=== PATIENT | female | born 1950 | race Caucasian/White ===

== ENCOUNTER → 2017-09-30 | Outpatient (CLI) | payer MEDICARE, OTHER ==
--- NOTE | 2017-09-30 12:17 | CTL ---
EXAMINATION TYPE: CT Low Dose Lung DATE OF EXAM ORDERED: 09/30/2017 HISTORY: Tobacco abuse. Lung cancer screening CT DLP: 55.[address] CTDI: 2.1 mGy Automated exposure control for dose reduction was used. SCREENING VISIT: Second COMPARISON: 07/27/2016 TECHNIQUE: Low dose computed tomography scan was performed through the chest at 1 mm thick sections a nd reconstructed images in the coronal plane at [address] DIAGNOSTIC QUALITY: Satisfactory FINDINGS: LUNG NODULES: None. LUNGS: COPD: Severity: Mild centrilobular Fibrosis: Severity: None Lymph nodes: None Other findings: Minimal dependent bibasilar subsegmental atelectasis. RIGHT PLEURAL SPACE: Effusion: None Calcification: None Thickening: None Pneumothorax: None LEFT PLEURAL SPACE: Effusion: None Calcification: None Thickening: None Pneumothorax: None HEART: Heart Size: Nonenlarged Coronary calcification: Minimal Pericardial effusion: None OTHER FINDINGS: Upper abdomen: Diffuse hypoattenuation of the hepatic parenchyma suggests underlying hepatic steatosi s. Bony thorax: Minimal multilevel degenerative changes of the thoracic spine. No suspicious osseous les ions. Supraclavicular region: Unremarkable. IMPRESSION: No pulmonary nodules or masses. Mild centrilobular emphysematous changes. FOLLOW UP CT CHEST RECOMMENDATION: Annual screening low dose CT is recommended in one year. CT LUNG RAD: Lung-Rad 1 Negative
--- NOTE | 2017-10-03 11:14 | MM ---
Reason for exam: screening (asymptomatic). Last mammogram was performed 1 year and 4 months ago. History: Patient is postmenopausal and is nulliparous. Family history of breast cancer in maternal grandmother at age 70, premenopausal breast cancer in sister at age 37, and premenopausal breast cancer in sister at age 52. Benign stereotactic core biopsy of the right breast, July 06, 2001. Core biopsy of the right breast. Took estrogen for 20 years beginning at age 31. Physical Findings: A clinical breast exam by your physician is recommended on an annual basis and results should be correlated with mammographic findings. MG 3D Screening Mammo W/Cad Bilateral CC and MLO view(s) were taken. Prior study comparison: May 28, 2016, bilateral MG 3d screening mammo w/cad. October 18, 2014, bilateral MG screening mammo w CAD. The breast tissue is heterogeneously dense. This may lower the sensitivity of mammography. Stable benign calcifications in the right breast. There is no discrete abnormality. No significant changes when compared with prior studies. ASSESSMENT: Benign, BI-RAD 2 RECOMMENDATION: Routine screening mammogram of both breasts in 1 year.
== END | disposition home or self-care (01) ==
LOC: RADMAMWWP 10:40
PROVIDERS: ATTEND Family Medicine
DX: Z12.31 Encounter for screening mammogram for malignant neoplasm of breast (principal); Z12.2 Encounter for screening for malignant neoplasm of respiratory organs; J43.2 Centrilobular emphysema; Z87.891 Personal history of nicotine dependence
CPT/HCPCS: 77063; G0202; G0297

== ENCOUNTER → 2018-01-30 | Outpatient (CLI) | payer MEDICARE, OTHER ==
[2018-01-30 14:45] LABS: Basophils # (A) 0.1 k/uL (0-0.2); Basophils % (A) 1 %; Eosinophils # (A) 0.4 k/uL (0-0.7); Eosinophils % (A) 5 %; HCT 48.7 % (34.0-46.0); HGB 15.9 gm/dL (11.4-16.0); Lymphocytes # (A) 3.2 k/uL (1.0-4.8); Lymphocytes % (A) 35 %; MCHC 32.7 g/dL (31.0-37.0); MCV 91.9 fL (80.0-100.0); Mean Platelet Volume 7.2; Monocytes # (A) 0.6 k/uL (0-1.0); Monocytes % (A) 6 %; Neutrophils # (A) 4.9 k/uL (1.3-7.7); Neutrophils % (A) 52 %; Platelet Count 312 k/uL (150-450); RBC 5.29 m/uL (3.80-5.40); RDW 12.9 % (11.5-15.5); WBC 9.3 k/uL (3.8-10.6)
[2018-01-30 14:53] LABS: Albumin 4.5 g/dL (3.5-5.0); Calcium 9.9 mg/dL (8.4-10.2); Potassium 4.4 mmol/L (3.5-5.1); Total Bilirubin 0.5 mg/dL (0.2-1.3); Total Protein 7.4 g/dL (6.3-8.2)
--- NOTE | 2018-01-30 16:30 | CT ---
EXAMINATION TYPE: CT abdomen pelvis w con DATE OF EXAM: 01/30/2018 COMPARISON: CT low-dose lung cancer screening 09/30/2017 HISTORY: 67 year-old female right lower quadrant and right lower flank pain for 3-4 days TECHNIQUE: Contiguous axial scanning of the abdomen and pelvis following administration of 100 ml Omn ipaque 300 IV contrast. Delayed images through the kidneys and coronal/sagittal reconstructions perf ormed. CT DLP: 532.3 mGycm Automated exposure control for dose reduction was used. FINDINGS: Heart is normal size without pericardial effusion. Lung bases clear without pleural effusion. Tiny hiatal hernia. Liver measures upper limits of normal in size at 16.4 cm craniocaudal. Suggestion of some fatty spari ng along the gallbladder fossa. Portal venous system is patent. No biliary ductal dilatation. Gallbladder, adrenal glands, kidneys, spleen with tiny anterior splenule, pancreas appear within norm al limits. Tiny fatty umbilical hernia. No dilated small bowel, free fluid, or free air. No mesenteric or retroperitoneal lymphadenopathy. Or al contrast progressed to the splenic flexure. There is moderate stool. No pericolonic inflammatory c hange. While the appendix is not discretely visualized, no dilated tubular fluid-filled structure is identif ied in the right lower quadrant to suggest acute appendicitis. Bladder distended. Uterus surgically absent. Neither ovary is seen and also be surgically absent. No abnormal fluid collection in the pelvis or pelvic lymphadenopathy seen. Bones: no osseous destructive process. IMPRESSION: 1. Mild hepatic stenosis. Correlate with LFTs, lipid profile, and patient risk factors. 2. Scattered moderate stool burden. No acute inflammatory process identified in the abdomen or pelvis to explain the patient's symptoms. 3. Status post hysterectomy.
== END | disposition home or self-care (01) ==
LOC: RADCTMAIN 14:14
PROVIDERS: ATTEND Nurse Practitioner Family
DX: K76.89 Other specified diseases of liver (principal); R10.0 Acute abdomen; Z90.710 Acquired absence of both cervix and uterus
CPT/HCPCS: 80053; 85025; 74177; 36415; Q9967

== ENCOUNTER → 2018-02-08 | Outpatient (CLI) | payer MEDICARE, OTHER ==
--- NOTE | 2018-02-08 14:39 | US ---
EXAMINATION TYPE: US kidneys/renal and bladder DATE OF EXAM: 02/08/2018 COMPARISON: CT 01/30/2018 CLINICAL HISTORY: R10.11 RUQ PAIN. EXAM MEASUREMENTS: Right Kidney: 10.1 x 3.9 x 4.3 cm Left Kidney: 10.5 x 5.6 x 4.7 cm Right Kidney: No hydronephrosis or masses seen Left Kidney: No hydronephrosis or masses seen Bladder: wnl as visualized, not fully distended Bilateral Jets seen: No, however the bladder was not fully distended. There is no evidence for hydronephrosis at this point in time. No nephrolithiasis is seen. No fern s are identified. The urinary bladder is anechoic. IMPRESSION: No hydronephrosis or nephrolithiasis. Incomplete distention of the urinary bladder although no gross abnormality is seen
== END | disposition home or self-care (01) ==
LOC: RADUSWWP 14:07
PROVIDERS: ATTEND Family Medicine
DX: N32.89 Other specified disorders of bladder (principal)
CPT/HCPCS: 76770

== ENCOUNTER → 2018-11-13 | Outpatient (CLI) | payer MEDICARE, OTHER ==
--- NOTE | 2018-11-16 11:07 | MM ---
Reason for exam: screening (asymptomatic). Last mammogram was performed 1 year and 1 month ago. History: Patient is postmenopausal and is nulliparous. Family history of breast cancer in maternal grandmother at age 70, premenopausal breast cancer in sister at age 37, and premenopausal breast cancer in sister at age 52. Benign stereotactic core biopsy of the right breast, July 06, 2001. Core biopsy of the right breast. Took estrogen for 20 years beginning at age 31. Physical Findings: A clinical breast exam by your physician is recommended on an annual basis and results should be correlated with mammographic findings. MG 3D Screening Mammo W/Cad Bilateral CC and MLO view(s) were taken. Prior study comparison: September 30, 2017, bilateral MG 3d screening mammo w/cad. May 28, 2016, bilateral MG 3d screening mammo w/cad. The breast tissue is heterogeneously dense. This may lower the sensitivity of mammography. There are benign appearing round calcifications bilaterally. Previous mammotome biopsy in the right breast. There is no discrete abnormality. ASSESSMENT: Benign, BI-RAD 2 RECOMMENDATION: Routine screening mammogram of both breasts in 1 year.
== END | disposition home or self-care (01) ==
LOC: RADMAMWWP 10:08
PROVIDERS: ATTEND Family Medicine
DX: Z12.31 Encounter for screening mammogram for malignant neoplasm of breast (principal)
CPT/HCPCS: 77063; 77067

== ENCOUNTER → 2019-12-12 | Outpatient (CLI) | payer MEDICARE, OTHER ==
--- NOTE | 2019-12-12 10:12 | BD ---
EXAMINATION TYPE: Axial Bone Density DATE OF EXAM: 12/12/2019 COMPARISON: NONE CLINICAL HISTORY: Height: 5 FT 1 1/2 IN Weight: 133 FRAX RISK QUESTIONS: Alcohol (3 or more units per day): NO Family History (Parent hip fracture): NO Glucocorticoids (More than 3mos): NO (Ex: prednisone, prednisolone, methylprednisolone, dexamethasone, and hydrocortisone). History of Fracture in Adulthood: YES Secondary Osteoporosis: 1. Type 1 Diabetes: NO 2. Hyperthyroidism: NO 3. Menopause before 45: NO 4. Malnutrition: NO 5. Chronic liver disease: NO Rheumatoid Arthritis: NO Current Tobacco Use: NO RISK FACTORS HISTORY OF: Active: YES Postmenopausal woman: PART HYST AGE 32 Take estrogen and/or progesterone medications: PRIOR How long: TOOK APPROX 20 YEARS MEDICATIONS: Additional Medications: ELAVIL, XANAX, VIT D , FOLIC ACID, Additional History: EXAM MEASUREMENTS: Bone mineral densitometry was performed using the OraMetrix System. Bone mineral density as measured about the Lumbar spine is: ----- L1-L4(G/cm2): 1.005 T Score Values are as follows: ----- L2: -2.8 ----- L3: -0.9 ----- L4: -0.1 ----- L1-L4: -1.5 PREV LONG AGO Bone mineral density about the R hip (g/cm2): 0.833 Bone mineral density about the L hip (g/cm2): 0.818 T Score values are as follows: -----R Neck: -1.5 -----L Neck: -1.6 -----R Total: -0.7 -----L Total: -0.8 PREV LONG AGO IMPRESSION: Osteopenia (T Score between -2.5 and -1). There is slightly increased risk of fracture and the patient may be considered for treatment. Re-Screen 2-5 years. NOTE: T-SCORE=SD OF THE YOUNG ADULT MEAN.
--- NOTE | 2019-12-13 13:29 | MM ---
Reason for exam: screening (asymptomatic). Last mammogram was performed 1 year and 1 month ago. History: Patient is postmenopausal and is nulliparous. Family history of breast cancer in maternal grandmother at age 70, premenopausal breast cancer in sister at age 37, and premenopausal breast cancer in sister at age 52. Benign stereotactic core biopsy of the right breast, July 06, 2001. Core biopsy of the right breast. Took estrogen for 20 years beginning at age 31. Physical Findings: A clinical breast exam by your physician is recommended on an annual basis and results should be correlated with mammographic findings. MG 3D Screening Mammo W/Cad Bilateral CC and MLO view(s) were taken. Prior study comparison: November 13, 2018, bilateral MG 3d screening mammo w/cad. September 30, 2017, bilateral MG 3d screening mammo w/cad. The breast tissue is heterogeneously dense. This may lower the sensitivity of mammography. No significant changes when compared with prior studies. ASSESSMENT: Benign, BI-RAD 2 RECOMMENDATION: Routine screening mammogram of both breasts in 1 year.
== END | disposition home or self-care (01) ==
LOC: RADMAMWWP 06:50
PROVIDERS: ATTEND Family Medicine
DX: Z12.31 Encounter for screening mammogram for malignant neoplasm of breast (principal); Z13.820 Encounter for screening for osteoporosis; M85.80 Other specified disorders of bone density and structure, unspecified site; Z78.0 Asymptomatic menopausal state
CPT/HCPCS: 77063; 77067; 77080

== ENCOUNTER → 2021-01-14 | Outpatient (CLI) | payer MEDICARE, OTHER ==
--- NOTE | 2021-01-16 13:33 | MM ---
Reason for exam: screening (asymptomatic). Last mammogram was performed 1 year and 1 month ago. History: Patient is postmenopausal and is nulliparous. Family history of breast cancer in maternal grandmother at age 70, premenopausal breast cancer in sister at age 37, and premenopausal breast cancer in sister at age 52. Benign stereotactic core biopsy of the right breast, July 06, 2001. Core biopsy of the right breast. Took estrogen for 20 years beginning at age 31. Physical Findings: A clinical breast exam by your physician is recommended on an annual basis and results should be correlated with mammographic findings. MG 3D Screening Mammo W/Cad Bilateral CC and MLO view(s) were taken. Prior study comparison: December 12, 2019, bilateral MG 3d screening mammo w/cad. November 13, 2018, bilateral MG 3d screening mammo w/cad. The breast tissue is extremely dense which could obscure a lesion on mammography. Stable benign calcifications. There is no discrete abnormality. No significant changes when compared with prior studies. ASSESSMENT: Benign, BI-RAD 2 RECOMMENDATION: Routine screening mammogram of both breasts in 1 year.
== END | disposition home or self-care (01) ==
LOC: RADMAMWWP 08:06
PROVIDERS: ATTEND Family Medicine
DX: Z12.31 Encounter for screening mammogram for malignant neoplasm of breast (principal)
CPT/HCPCS: 77063; 77067

== ENCOUNTER → 2021-11-11 | Outpatient (CLI) | payer MEDICARE, OTHER ==
[~2021-11-11] MED LIST: CASIRIVIMAB (REGN10933) (EUA) 600 MG, IMDEVIMAB (REGN10987) (EUA) 600 MG in SODIUM CHLO... IVPB NR; SODIUM CHLORIDE 0.9% 50 ML IVPB NR; SODIUM CHLORIDE 0.9% 500 ML 500 ML in EMPTY BAG 1 BAG IV PRN
[2021-11-11 13:22] VITALS: RESP 16
[2021-11-11 13:43] VITALS: BP 133/74; PULSE 86; TEMP 98.2
== END ==
LOC: PROCWHC3 13:06
PROVIDERS: ATTEND Family Medicine
DX: U07.1 COVID-19 (principal); Z88.1 Allergy status to other antibiotic agents; Z88.2 Allergy status to sulfonamides; Z88.6 Allergy status to analgesic agent
CPT/HCPCS: Q0244; M0243

== ENCOUNTER → 2022-04-01 | Outpatient (CLI) | payer MEDICARE, OTHER ==
--- NOTE | 2022-04-02 12:50 | MM ---
Reason for exam: screening (asymptomatic). Last mammogram was performed 1 year and 3 months ago. History: Patient is postmenopausal and is nulliparous. Family history of breast cancer in maternal grandmother at age 70, premenopausal breast cancer in sister at age 37, and premenopausal breast cancer in sister at age 52. Benign stereotactic core biopsy of the right breast, July 06, 2001. Core biopsy of the right breast. Took estrogen for 20 years beginning at age 31. Physical Findings: A clinical breast exam by your physician is recommended on an annual basis and results should be correlated with mammographic findings. MG 3D Screening Mammo W/Cad Bilateral CC and MLO view(s) were taken. Prior study comparison: January 14, 2021, bilateral MG 3d screening mammo w/cad. December 12, 2019, bilateral MG 3d screening mammo w/cad. The breast tissue is extremely dense which could obscure a lesion on mammography. Stable benign calcifications. Previous mammotome biopsy in the right breast. No significant changes when compared with prior studies. ASSESSMENT: Benign, BI-RAD 2 RECOMMENDATION: Routine screening mammogram of both breasts in 1 year.
== END | disposition home or self-care (01) ==
LOC: RADMAMWWP 13:09
PROVIDERS: ATTEND Family Medicine
DX: Z12.31 Encounter for screening mammogram for malignant neoplasm of breast (principal); Z78.0 Asymptomatic menopausal state; Z80.3 Family history of malignant neoplasm of breast
CPT/HCPCS: 77063; 77067

== ENCOUNTER → 2022-04-23 | Outpatient (CLI) | payer MEDICARE, OTHER ==
--- NOTE | 2022-04-23 09:07 | CTL ---
EXAMINATION TYPE: CT Low Dose Lung DATE OF EXAM ORDERED: 04/23/2022 HISTORY: Long-term tobacco use. Lung cancer screening CT DLP: 73.[address] CTDI: 2.3 mGy Automated exposure control for dose reduction was used. SCREENING VISIT: Second after baseline COMPARISON: Prior studies 2016 and 2017 TECHNIQUE: Low dose computed tomography scan was performed through the chest at 1 mm thick sections a nd reconstructed images in multiple planes at 1 mm and [address] DIAGNOSTIC QUALITY: Satisfactory FINDINGS: LUNG NODULES: None. LUNGS: COPD: Severity: Moderate Fibrosis: Severity: Minimal Lymph nodes: None Other findings: There is a four-vessel aortic arch which is normal variant RIGHT PLEURAL SPACE: Effusion: None Calcification: None Thickening: None Pneumothorax: None LEFT PLEURAL SPACE: Effusion: None Calcification: None Thickening: None Pneumothorax: None HEART: Heart Size: Normal Coronary Calcification: Mild Pericardial Effusion: None OTHER FINDINGS: Upper abdomen: Visualized liver is diffusely hypodense consistent with diffuse fatty infiltration Bony thorax: None Supraclavicular region: None Other: None IMPRESSION: Moderate emphysematous change without suspicious new greater than [address] LUNG RAD AND CT CHEST RECOMMENDATION: Lung-Rad 1 Negative: Continue annual screening with LDCT in 12 months. S Modifier (other clinically significant findings): None
== END | disposition home or self-care (01) ==
LOC: RADCTMAIN 07:56
PROVIDERS: ATTEND Family Medicine
DX: Z12.2 Encounter for screening for malignant neoplasm of respiratory organs (principal); J43.9 Emphysema, unspecified; Z87.891 Personal history of nicotine dependence
CPT/HCPCS: 71271

== ENCOUNTER → 2023-04-06 | Outpatient (CLI) | payer MEDICARE, OTHER ==
--- NOTE | 2023-04-06 10:20 | MM ---
Reason for Exam: Screening (asymptomatic). Last screening mammogram was performed 12 month(s) ago. Patient History: Menarche at age 15. Patient has no children. Left ovary removed at age 32. Right ovary removed at age 32. Hysterectomy at age 32. Postmenopausal. Estrogen for 20 years from age 31 until age 52. Core Biopsy on the Right side. 07/06/2001, Benign Stereotactic Core Biopsy on the right side. Maternal grandmother had breast cancer, age 70. Sister had breast cancer, age 37. Sister had breast cancer, age 52. Risk Values: Debby 5 year model risk: 8.1%. NCI Lifetime model risk: 20.9%. Prior Study Comparison: 12/12/2019 Bilateral Screening Mammogram, [facility]. 01/14/2021 Bilateral Screening Mammogram, [facility]. 04/01/2022 Bilateral Screening Mammogram, [facility]. Tissue Density: The breast tissue is heterogeneously dense. This may lower the sensitivity of mammography. Findings: Analyzed By CAD. Benign-appearing calcifications. There is no suspicious group of microcalcifications or new suspicious mass in either breast. Overall Assessment: Benign, BI-RAD 2 Management: Screening Mammogram of both breasts in [address] [facility] will attempt to contact patient to return for supplemental views and ultrasound if indicated. Patient should continue monthly self-breast exams. A clinical breast exam by your physician is recommended on an annual basis. This exam should not preclude additional follow-up of suspicious palpable abnormalities. Note on Debby scores and lifetime risk: 1. A Debby score greater than 3% is considered moderate risk. If this is the case, consider specialist referral to assess eligibility for a risk reducing agent. 2. If overall lifetime risk for the development of breast cancer is 20% or higher, the patient may qualify for future screening with alternating mammogram and breast MRI. Electronically signed and approved by: David Agarwal DO
== END | disposition home or self-care (01) ==
LOC: RADMAMWWP 08:51
PROVIDERS: ATTEND Family Medicine
DX: Z12.31 Encounter for screening mammogram for malignant neoplasm of breast (principal); Z78.0 Asymptomatic menopausal state; Z80.3 Family history of malignant neoplasm of breast
CPT/HCPCS: 77063; 77067

== ENCOUNTER → 2023-07-04 | Outpatient (CLI) | payer MEDICARE, OTHER ==
--- NOTE | 2023-07-04 10:37 | CTL ---
EXAMINATION TYPE: CT Low Dose Lung DATE OF EXAM ORDERED: 07/04/2023 HISTORY: . Lung cancer screening CT DLP: 67.[address] CTDI: 2.1 mGy Automated exposure control for dose reduction was used. COMPARISON: 04/23/2022. TECHNIQUE: Low dose computed tomography scan was performed through the chest at 1 mm thick sections a nd reconstructed images in multiple planes at 1 mm and [address] DIAGNOSTIC QUALITY: Satisfactory FINDINGS: CHEST: Lungs: There is moderate upper lobe predominant centrilobular emphysema. There are no significant pu lmonary nodules. Pleura: Normal. Mediastinum And Meena: Normal. Cardiovascular: The thoracic aorta is normal in caliber without evidence of aneurysmal dilation. Ther e are mild patchy coronary artery calcifications. Chest Wall: Normal. Upper Abdomen: There is diffuse decreased attenuation of the liver which is compatible fatty liver in filtration. The visualized upper abdomen otherwise appears unremarkable. MUSCULOSKELETAL: Normal. IMPRESSION: 1. Negative lung cancer screening examination for significant pulmonary nodules. Lung RADS 1. Contin ue screening in 1 year. 2. Moderate emphysema. 3. Mild coronary calcification. 4. Diffuse hepatic steatosis.
== END | disposition home or self-care (01) ==
LOC: RADCTMAIN 07:15
PROVIDERS: ATTEND Family Medicine
DX: Z12.2 Encounter for screening for malignant neoplasm of respiratory organs (principal); J43.2 Centrilobular emphysema; I25.10 Atherosclerotic heart disease of native coronary artery without angina pectoris; K76.0 Fatty (change of) liver, not elsewhere classified
CPT/HCPCS: 71271

== ENCOUNTER → 2025-01-23 | Outpatient (CLI) | payer MEDICARE, OTHER ==
--- NOTE | 2025-01-23 08:30 | MM ---
Reason for Exam: Additional evaluation requested from abnormal screening. Last screening mammogram was performed 10 month(s) ago. Indicated Problems: Pain of the left side (Focal) for 6 Month(s) : 6 month. Palpable abnormality of the left side for 6 Month(s). Patient History: Menarche at age 15. Patient has no children. Left ovary removed at age 32. Right ovary removed at age 32. Hysterectomy at age 32. Postmenopausal. Estrogen for 20 years from age 31 until age 52. Core Biopsy on the Right side. 07/06/2001, Benign Stereotactic Core Biopsy on the right side. Maternal grandmother had breast cancer, age 70. Sister had breast cancer, age 37. Sister had breast cancer, age 52. Risk Values: Debby 5 year model risk: 8.2%. NCI Lifetime model risk: 19.0%. Prior Study Comparison: 04/01/2022 Bilateral Screening Mammogram, [facility]. 04/06/2023 Bilateral MG 3D screening mammo w/cad, [facility]. 04/10/2024 Bilateral MG 3D screening mammo w/cad, [facility]. Tissue Density: Left: The breasts are heterogeneously dense, which may obscure small masses. Findings: Analyzed By CAD. Pain marker near the axilla and palpable marker upper outer quadrant. There is an 8 mm area of nodular asymmetric density proximally 7:00 posterior left breast which completely suppresses on 3-D images and spot views. Further ultrasound evaluation is recommended. Otherwise, no significant change. Overall Assessment: Incomplete: need additional imaging evaluation, BI-RAD 0 Management: Diagnostic Breast Ultrasound of the left breast. [facility], , 01/23/2025 8:28 AM. Electronically signed and approved by: Leonard Fischer M.D. Radiologist
--- NOTE | 2025-01-23 08:35 | USB ---
Reason for Exam: Follow-up at short interval from prior study. Patient History: Menarche at age 15. Patient has no children. Left ovary removed at age 32. Right ovary removed at age 32. Hysterectomy at age 32. Postmenopausal. Estrogen for 20 years from age 31 until age 52. Core Biopsy on the Right side. 07/06/2001, Benign Stereotactic Core Biopsy on the right side. Maternal grandmother had breast cancer, age 70. Sister had breast cancer, age 37. Sister had breast cancer, age 52. Risk Values: Debby 5 year model risk: 8.2%. NCI Lifetime model risk: 19.0%. Technique: Method: Targeted. Prior Study Comparison: 04/01/2022 Bilateral Screening Mammogram, [facility]. 04/06/2023 Bilateral MG 3D screening mammo w/cad, [facility]. 04/10/2024 Bilateral MG 3D screening mammo w/cad, [facility]. Findings: The upper outer quadrant of the left breast, the lower inner quadrant of the left breast, the axilla of the left breast and the retroareolar of the left breast were scanned. Targeted ultrasound left breast 12:00 to 3:00, 7:00, subareolar region, and axilla. Along the upper outer quadrant and axilla corresponding to the site of patient's pain and palpable abnormality, no solid or cystic lesion or axillary adenopathy is seen. Dense tissues are present especially behind the nipple. Additional targeted scanning at and around 7:00 shows no discrete abnormality. Close surveillance follow-up recommended for the mammographic finding. Overall Assessment: Probably benign, BI-RAD 3 Management: Diagnostic Mammogram of both breasts in 3 months. 3 month follow-up diagnostic left breast mammogram as close surveillance follow-up for the density which may represent tissue and with no sonographic correlate. Annual exam of the right breast. Further clinical management for any suspicious palpable abnormalities and for left breast pain. See note below in regards to the patient's increased 5 year Debby score A clinical breast exam by your physician is recommended on an annual basis and results should be correlated with mammographic findings. This exam should not preclude additional follow-up of suspicious palpable abnormalities. Results were given to the patient verbally at the time of exam. Note on Debby scores and lifetime risk: 1. A Debby score greater than 3% is considered moderate risk. If this is the case, consider specialist referral to assess eligibility for a risk reducing agent. 2. If overall lifetime risk for the development of breast cancer is 20% or higher, the patient may qualify for future screening with alternating mammogram and breast MRI. [facility], , 01/23/2025 8:31 AM. Electronically signed and approved by: Leonard Fischer M.D. Radiologist
== END | disposition home or self-care (01) ==
LOC: RADMAMWWP 07:22
PROVIDERS: ATTEND Student in an Organized Health Care Education/Training Program
DX: N63.22 Unspecified lump in the left breast, upper inner quadrant (principal); R92.333 Mammographic heterogeneous density, bilateral breasts; Z78.0 Asymptomatic menopausal state; Z80.3 Family history of malignant neoplasm of breast
CPT/HCPCS: 77065; 76642; G0279; 77061

== ENCOUNTER → 2025-06-10 | Outpatient (CLI) | payer MEDICARE, OTHER ==
--- NOTE | 2025-06-10 10:56 | MM ---
Reason for Exam: Follow-up at short interval from prior study. Last mammogram was performed 1 year(s) and 2 month(s) ago. Patient History: Menarche at age 15. Patient has no children. Left ovary removed at age 32. Right ovary removed at age 32. Hysterectomy at age 32. Postmenopausal. Estrogen for 20 years from age 31 until age 52. Core Biopsy on the Right side. 07/06/2001, Benign Stereotactic Core Biopsy on the right side. Maternal grandmother had breast cancer, age 70. Sister had breast cancer, age 37. Sister had breast cancer, age 52. Risk Values: Debby 5 year model risk: 8.3%. NCI Lifetime model risk: 18.0%. Prior Study Comparison: 11/13/2018 Bilateral Screening Mammogram, [facility]. 01/14/2021 Bilateral Screening Mammogram, [facility] 04/06/2023 Bilateral MG 3D screening mammo w/cad, [facility]. 04/10/2024 Bilateral MG 3D screening mammo w/cad, [facility]. 01/23/2025 Left US breast limited LT, [facility]. 01/23/2025 Left MG 3D diag mammo w/cad LT, [facility]. Tissue Density: The breasts are heterogeneously dense, which may obscure small masses. Findings: Analyzed By CAD. Area of concern in the left breast is not significantly changed as 7.6 image nipple inferior medial aspect middle depth. Progression ultrasound recommended. No new suspicious masses, calcifications or distortions. Overall Assessment: Incomplete: need additional imaging evaluation, BI-RAD 0 Management: Diagnostic Breast Ultrasound of the left breast. Results were given to the patient verbally at the time of exam. Patient should continue monthly self-breast exams. A clinical breast exam by your physician is recommended on an annual basis. This exam should not preclude additional follow-up of suspicious palpable abnormalities. Note on Debby scores and lifetime risk: 1. A Debby score greater than 3% is considered moderate risk. If this is the case, consider specialist referral to assess eligibility for a risk reducing agent. 2. If overall lifetime risk for the development of breast cancer is 20% or higher, the patient may qualify for future screening with alternating mammogram and breast MRI. [facility], , 06/10/2025 10:53 AM. Electronically signed and approved by: David Agarwal DO
--- NOTE | 2025-06-10 11:18 | USB ---
Patient History: Menarche at age 15. Patient has no children. Left ovary removed at age 32. Right ovary removed at age 32. Hysterectomy at age 32. Postmenopausal. Estrogen for 20 years from age 31 until age 52. Core Biopsy on the Right side. 07/06/2001, Benign Stereotactic Core Biopsy on the right side. Maternal grandmother had breast cancer, age 70. Sister had breast cancer, age 37. Sister had breast cancer, age 52. Risk Values: Debby 5 year model risk: 8.3%. NCI Lifetime model risk: 18.0%. Technique: Method: Targeted. Prior Study Comparison: 04/06/2023 Bilateral MG 3D screening mammo w/cad, [facility]. 04/10/2024 Bilateral MG 3D screening mammo w/cad, [facility]. 01/23/2025 Left US breast limited LT, [facility]. 01/23/2025 Left MG 3D diag mammo w/cad LT, [facility]. Findings: The lower inner quadrant of the left breast, the axilla of the left breast and the retroareolar of the left breast were scanned. Technique utilized:US breast limited LT Image; Ultrasound imaging of: Area of concern, retroareolar region and axilla. Multiple hypoechoic lesions are seen at 7:00 3 cm the nipple measuring up to 3 mm. This is felt to likely correlate with findings on mammography. Overall Assessment: Probably benign, BI-RAD 3 Management: Diagnostic Breast Ultrasound of the left breast in 6 months. A clinical breast exam by your physician is recommended on an annual basis and results should be correlated with mammographic findings. This exam should not preclude additional follow-up of suspicious palpable abnormalities. Results were given to the patient verbally at the time of exam. [facility], , 06/10/2025 11:14 AM. Electronically signed and approved by: David Agarwal DO
== END | disposition home or self-care (01) ==
LOC: RADMAMWWP 10:20
PROVIDERS: ATTEND Student in an Organized Health Care Education/Training Program
DX: R92.8 Other abnormal and inconclusive findings on diagnostic imaging of breast (principal); R92.333 Mammographic heterogeneous density, bilateral breasts; Z78.0 Asymptomatic menopausal state; Z80.3 Family history of malignant neoplasm of breast
CPT/HCPCS: 77066; 76642; G0279; 77062